=== PATIENT | female | born 1950 | race Asian ===

== ENCOUNTER 2019-12-12 06:52 | Day surgery (SDC) | payer MEDICARE, OTHER ==
[~2019-12-12] VITALS: Ht 160 cm; Wt 50.0 kg
[~2019-12-12 06:52] MED LIST: ADV500 IH; LEVO75TA4 PO; MONT10TA21 PO; SODIUM CHLORIDE 0.9% 1,000 ML IV ONE; SODIUM CHLORIDE 0.9% 1,000 ML ONE
[2019-12-12] MEDS ORDERED: CHOL125C2 PO (07:04)
[2019-12-12] MEDS ORDERED: PRED10 PO (07:04)
[2019-12-12] MEDS ORDERED: GLUC-111 PO (07:04)
[2019-12-12] MEDS ORDERED: BACL10TA PO (07:04)
[2019-12-12] MEDS ORDERED: OMEP20 PO (07:04)
[2019-12-12] MEDS ORDERED: DOCU-275 PO (07:04)
[2019-12-12] MEDS ORDERED: SIMV-260 PO (07:04)
[2019-12-12] MEDS ORDERED: FentaNYL CITRATE-PF 100 MCG/2 ML VIAL ONE (08:14)
[2019-12-12] MEDS ORDERED: MIDAZOLAM HCL 2 MG/2 ML VIAL ONE (08:14)
[2019-12-12] MEDS ORDERED: MethylPREDNISolone SOD SUCC 125 MG/2 ML VIAL IVP ONE (09:15)
[2019-12-12] MEDS ORDERED: MethylPREDNISolone SOD SUCC 125 MG/2 ML VIAL ONE (09:15)
[2019-12-12] MEDS ORDERED: BENZOCAINE 20% 50 MCG/SPRAY 57 GM ONE (17:52)
[2019-12-12] MEDS ORDERED: ALBUTEROL SULFATE 2.5 MG/0.5 ML NEB SOLUTION NEB ONE (17:52)
[2019-12-12] MEDS ORDERED: LIDOCAINE 4% 50 ML SOLUTION ONE (17:52)
[2019-12-12] MEDS ORDERED: LIDOCAINE 2% 30 ML JELLY ONE (17:52)
[2019-12-12] MEDS ORDERED: OXYGEN THERAPY IH SCH (20:00)
== END 2019-12-12 11:00 | disposition home or self-care (01) ==
LOC: SURGERY 06:52
PROVIDERS: ATTEND Internal Medicine Critical Care Medicine
DX: J38.4 Edema of larynx (principal); B37.0 Candidal stomatitis; Z11.59 Encounter for screening for other viral diseases; E03.9 Hypothyroidism, unspecified
CPT/HCPCS: 31623; 31624; 71045; 87015; 87070; 87101; 87205; 87206; 87220; 88108; 88312; J2250; J2930; J3010; J7030; U0003; J7613; Z7610